=== PATIENT | male | born 1950 | race Caucasian/White ===

== ENCOUNTER 2019-02-21 17:01 | Emergency (ER) | payer MEDICARE, OTHER ==
[~2019-02-21] VITALS: Ht 167.6 cm; Wt 81.6 kg
[2019-02-21 17:01] VITALS: BP 121/64
[2019-02-21] MEDS ORDERED: NEOMY/BACITR/POLYMYXIN OINT PACKET. TP ONE (17:30)
[2019-02-21] MEDS ORDERED: DIPHTH,PERTUSS(ACELL),TET TOX 0.5 ML DISP.SYRIN. VAX IM ONE (17:30)
--- NOTE | 2019-02-21 17:31 | PHYS DOC ---
Past Medical History Past Medical History: Angina Past Surgical History: Tonsillectomy Additional Past Surgical Histo: "STENTS" Alcohol Use: Occasionally Drug Use: None Adult General Chief Complaint Chief Complaint: LACERATION/AVULSION HPI HPI Patient is a 68 year old female who presents to the ED today complaining of bleeding from the right foot. Patient states he itched his right foot varicose vein and it started bleeding. He states the bleeding could not stop so he called 911. There is no bleeding noted. Patient denies being on any blood thinners. Review of Systems Review of Systems Constitutional: Denies fever or chills [] Musculoskeletal: Denies back pain or joint pain [] Integument: Right foot laceration Neurologic: Denies headache, focal weakness or sensory changes [] All other systems were reviewed and found to be within normal limits, except as documented in this note. Current Medications Current Medications Current Medications Medications (Trade) Dose Ordered Sig/Raman Start Time Stop Time Status Last Admin Dose Admin Diphtheria/ Tetanus/Acell Pertussis (Boostrix) 0.5 ml ONCE ONCE 02/21/19 17:30 02/21/19 17:31 DC Neomycin/ Polymyxin/ Bacitracin (Triple Antibiotic Ointment) 1 pkt 1X ONCE 02/21/19 17:30 02/21/19 17:31 DC Allergies Allergies Allergies Coded Allergies Type Severity Reaction Last Updated Verified No Known Drug Allergies 02/21/19 No Physical Exam Physical Exam Constitutional: Well developed, well nourished, no acute distress, non-toxic appearance. [] HENT: Normocephalic, atraumatic, bilateral external ears normal, oropharynx moist, no oral exudates, nose normal. [] Skin: Warm, dry, no erythema, no rash. Right foot with no bleeding. No laceration noted. +2 right pedal pulse. Negative Homans sign to the right foot. Back: No tenderness, no CVA tenderness. [] Extremities: No tenderness, no cyanosis, no clubbing, ROM intact, no edema. [] Neurologic: Alert and oriented X 3, normal motor function, normal sensory function, no focal deficits noted. [] Psychologic: Patient appears intoxicated Current Patient Data Vital Signs Vital Signs Date Time Temp Pulse Resp B/P (MAP) Pulse Ox O2 Delivery O2 Flow Rate FiO2 02/21/19 17:01 98.3 82 20 121/64 (83) 93 Room Air 98.3 EKG EKG [] Radiology/Procedures Radiology/Procedures [] Course & Med Decision Making Course & Med Decision Making Pertinent Labs and Imaging studies reviewed. (See chart for details) This is a 68-year-old female patient presenting to the ED today complaining of bleeding from the right foot. Patient states he itched a varicose vein that started bleeding. No bleeding on arrival to the ED. Patient is in no distress. Given tetanus, foot cleaned, discharged to home. Follow-up with PCP. Provided return precautions. Dragon Disclaimer Dragon Disclaimer This electronic medical record was generated, in whole or in part, using a voice recognition dictation system. Departure Departure Impression: Primary Impression: Foot laceration Disposition: 01 HOME, SELF-CARE Condition: STABLE Patient Instructions: Laceration Care, Adult Additional Instructions: Your right foot was evaluated, your laceration is not bleeding anymore. Keep the affected area clean and dry. Keep the extremity elevated. Follow-up with your doctor next week. Problem Qualifiers Primary Impression: Foot laceration Encounter type: initial encounter Laterality: right Qualified Codes: S91.311A - Laceration without foreign body, right foot, initial encounter JUWAN CAMPBELL [employer] OPERATOR Feb 21, 2019 17:30
== END 2019-02-21 17:55 | disposition home or self-care (01) ==
LOC: ER 17:01
DX: S91.311A Laceration without foreign body, right foot, initial encounter (principal); I83.91 Asymptomatic varicose veins of right lower extremity; Z90.89 Acquired absence of other organs; X58.XXXA Exposure to other specified factors, initial encounter; Y93.89 Activity, other specified; Y92.89 Other specified places as the place of occurrence of the external cause; Y99.8 Other external cause status
CPT/HCPCS: 90471; 90715; 99283